=== PATIENT | male | born 1995 | race African-American/Black ===

== ENCOUNTER 2017-07-01 22:46 | Emergency (ER) | payer MEDICAID ==
[~2017-07-01] VITALS: Ht 180.3 cm; Wt 95.5 kg
[2017-07-02 00:55] VITALS: BP 125/74
== END 2017-07-02 01:00 | disposition home or self-care (01) ==
LOC: ER 23:56
DX: R76.11 Nonspecific reaction to tuberculin skin test without active tuberculosis (principal); F17.210 Nicotine dependence, cigarettes, uncomplicated
CPT/HCPCS: 99281